=== PATIENT | male | born 1950 | race Caucasian/White ===

== ENCOUNTER → 2020-03-29 13:27 | Outpatient (CLI) | payer MEDICARE, SELFPAY ==
--- NOTE | ~2020-03-29 | XR_ITS ---
EXAMINATION: XR shoulder LT min 2V DATE: 03/29/2020 13:46 INDICATION: Left shoulder pain. TECHNIQUE: 4 views of left shoulder were obtained. COMPARISON: None. FINDINGS: Bone alignment is normal. No fracture. There is mild osteoarthritis of glenohumeral joint a nd acromioclavicular joint characterized by tiny marginal osteophytes. IMPRESSION: 1. Mild polyarticular osteoarthritis. Reviewed, dictated and finalized at location A.
--- NOTE | ~2020-03-29 | XR_ITS ---
EXAMINATION: XR shoulder RT min 2V DATE: 03/29/2020 13:46 INDICATION: Right shoulder pain. TECHNIQUE: 4 views of right shoulder were obtained. COMPARISON: None. FINDINGS: Bone alignment is normal. No fracture. There is mild osteoarthritis of glenohumeral joint a nd acromioclavicular joint characterized by tiny marginal osteophytes. IMPRESSION: 1. Mild polyarticular osteoarthritis. Reviewed, dictated and finalized at location A.
== END ==
PROVIDERS: PCP Family Medicine; Visit Provider Physician Assistant
DX: M19.011 Primary osteoarthritis, right shoulder (principal); M19.012 Primary osteoarthritis, left shoulder
CPT/HCPCS: 73030

== ENCOUNTER 2021-08-14 09:37 | Emergency (ER) | payer MEDICARE, SELFPAY ==
[2021-08-14 09:52] VITALS: BP 159/83; PULSE 94; RESP 16; TEMP 36.8; O2SAT 99
[2021-08-14 09:57] VITALS: BP 159/83; PULSE 89; RESP 18; O2SAT 99
--- NOTE | 2021-08-14 10:28 | ED.MALEGU ---
HPI - Male Genitourinary General Chief complaint: Urogenital-Male <Karlee Perez PA-C - Last Filed: 08/14/21 11:57> Stated complaint: urinary retention <ARLET Allen Last Filed: 08/14/21 11:57> Time Seen by Provider: 08/14/21 10:02 <Karlee Perez PA-C - Last Filed: 08/14/21 11:57> Source: patient <ARLET Allen Last Filed: 08/14/21 11:57> Mode of arrival: ambulatory <ARLET Allen Last Filed: 08/14/21 11:57> Limitations: no limitations <ARLET Allen Last Filed: 08/14/21 11:57> History of Present Illness HPI Narrative: This is a 71 year old male that present to the ER for urinary retention. Reports he has not been able to urinate since last night. Reports yesterday he could only get out a small amount at a time. Reports some dysuria. Reports history of similar occurrences for which he has had to see Urology. He follows with [facility]. Denies fever, flank pain, vomiting, or hematuria. <ARLET Allen Last Filed: 08/14/21 11:57> Related Data Home medications: Home Medications Medication Instructions Recorded Confirmed finasteride 5 mg tablet 5 mg PO DAILY 10/13/19 04/09/21 tamsulosin 0.4 mg capsule 0.4 mg PO DAILY 10/13/19 04/09/21 <ARLET Allen Last Filed: 08/14/21 11:57> Allergies/Adverse reactions: Allergies Allergy/AdvReac Type Severity Reaction Status Date / Time No Known Allergies Allergy Unverified 04/09/21 10:36 <ARLET Allen Last Filed: 08/14/21 11:57> Review of Systems Review of Systems: CONSTITUTIONAL: Denies fever GASTROINTESTINAL: Denies nausea, vomiting GENITOURINARY: Reports dysuria. Denies hematuria. <ARLET Allen Last Filed: 08/14/21 11:57> All systems reviewed & are unremarkable except as noted in HPI and below <Karlee Perez PA-C - Last Filed: 08/14/21 11:57> [facility] Past Medical History Medical History: Medical History (Updated 08/14/21 @ 11:56 by Karlee Perez PA-C) Bilateral shoulder pain Dyslipidemia Essential (primary) hypertension IDDM (insulin dependent diabetes mellitus) <Karlee Perez PA-C - Last Filed: 08/14/21 11:57> Surgical History Surgical History: Surgical History Status post hernia repair <Karlee Perez PA-C - Last Filed: 08/14/21 11:57> Family History Family History: Family History Father Diabetes mellitus Family history of lung cancer Mother Diabetes mellitus Sibling Diabetes mellitus Other Hypertension <Karlee Perez PA-C - Last Filed: 08/14/21 11:57> Social History Social History: Social History Social History: Second hand tobacco smoke exposure: No Alcohol intake: never Substance use: never Substance use type: does not use Gender identity (if verbalized by the patient): Male Sexual Orientation (if Verbalized by the Patient): Straight or Heterosexual <Karlee Perez PA-C - Last Filed: 08/14/21 11:57> Exam Narrative: GENERAL: Well-appearing, well-nourished, and in no acute distress. HEAD: Normocephalic, atraumatic. EYES: EOMI. CHEST: Clear to auscultation. No respiratory distress. No wheezes rales or rhonchi HEART: Regular rate and rhythm. No murmur heard. Normal peripheral pulses. ABDOMEN: Soft, nondistended, normal active bowel sounds. Tender to palpation over the bladder which is distended EXTREMITIES: Normal range of motion. No edema. SKIN: Warm, dry, no rash. NEURO: No focal deficits. Alert and oriented x3. PSYCH: Normal mood and affect <Karlee Perez PA-C - Last Filed: 08/14/21 11:57> Course LABORATORY IMMUNOLOGIST/PA Physician Supervision I did not see this patient nor was the care plan discussed with me. I was available for evaluation and consultation, I agree with the docu
[2021-08-14 11:31] LABS: Add Urine Microscopic? YES; Appearance Urine Clear (Clear); Bilirubin Urine Negative (Negative); Blood Urine Negative (Negative); Color Urine Yellow (Yellow); Glucose Urine UA 2+ mg/dL (Negative); Ketones Urine Negative (Negative); Leukocyte Esterase Ur Negative LEU/UL (Negative); Mucus Urine Rare /lpf; Nitrate Urine Negative (Negative); Protein Urine Negative (Negative); RBC Urine 0-2 /hpf (0-2); Urobilinogen Urine Negative mg/dL (<2.0)
--- NOTE | 2021-08-14 12:03 | PC.NURSE ---
Chris ordered to clamp García catheter
--- NOTE | 2021-08-14 12:05 | PC.NURSE ---
Karlee LANDEROS ordered to leave García catheter clamped for about 20 Mins before discharging
[2021-08-14 12:43] VITALS: BP 121/72; PULSE 80; RESP 18; O2SAT 95
== END 2021-08-14 12:44 | disposition home or self-care (01) ==
PROVIDERS: Physician Assistant; Emergency Provider Emergency Medicine; PCP Family Medicine
DX: R33.9 Retention of urine, unspecified (principal); I10 Essential (primary) hypertension; E11.9 Type 2 diabetes mellitus without complications
CPT/HCPCS: 51702; 81001; 99283

== ENCOUNTER 2021-10-04 10:24 | Outpatient (CLI) | payer MEDICARE, SELFPAY ==
[2021-10-04 11:22] LABS: Basophils Absolute Auto 0.1 K/mm3 (0.0-0.1); Basophils Percent Auto 0.7 % (0.2-1.2); Eosinophils Absolute Auto 0.2 K/mm3 (0-0.3); Eosinophils Percent Auto 3.2 % (0-4.4); Hematocrit 44.9 % (42.0-52.0); Hemoglobin 15.9 g/dL (14.0-18.0); Immature Granulocyte Absolute 0.03 K/mm3 (0.00-0.031); Immature Granulocyte Percent A 0.4 % (0-0.5); Immature Platelet Fraction Pct 2.5 % (0.9-11.2); Lymphocytes Absolute Auto 1.32 K/mm3 (0.9-3.2); Lymphocytes Percent Auto 18.9 % (18.3-44.2); Mean Corpuscular HGB Conc 35.4 g/dl (32-36); Mean Corpuscular Hemoglobin 31.2 pg (26-34); Mean Corpuscular Volume 88.2 fl (80-100); Mean Platelet Volume 10.8 fl (7.4-10.4); Monocytes Percent Auto 13.9 % (2.6-8.5); Neutrophils Absolute Auto 4.4 K/mm3 (1.3-6.7); Neutrophils Percent Auto 62.9 % (45.5-73.1); Platelet Count Result 153 k/mm3 (150-375); Red Blood Count 5.09 M/mm3 (4.6-6.20); Red Cell Distribution Width 12.6 % (11.5-14.5)
[2021-10-04 11:34] LABS: Alanine Aminotransferase 25 U/L (4-50); Albumin Level 4.6 g/dL (3.5-5.1); Alkaline Phosphatase 85 U/L (38-126); Anion Gap 7 mmol/L (8-16); Aspartate Amino Transferase 23 U/L (17-59); Blood Urea Nitrogen 21 mg/dL (9-20); Calcium 9.6 mg/dL (8.4-10.2); Carbon Dioxide 29 mmol/L (22-30); Chloride 99 mmol/L (98-107); Estimated Glomerular Filt Rate > 60; Glucose 277 mg/dL (65-110); Potassium 3.8 mmol/L (3.4-5.0); Sodium 135 mmol/L (137-145)
[2021-10-04 11:36] LABS: Add Urine Microscopic? YES; Appearance Urine Cloudy (Clear); Bilirubin Urine Negative (Negative); Blood Urine Negative (Negative); Budding Yeast Urine Present /hpf; Color Urine Yellow (Yellow); Glucose Urine UA 3+ mg/dL (Negative); Ketones Urine Negative (Negative); Leukocyte Esterase Ur 3+ LEU/UL (NEGATIVE); Nitrate Urine Positive (Negative); Protein Urine 2+ mg/dL (Negative); Specific Grav Ur 1.025 (1.001-1.035); Urobilinogen Urine Negative mg/dL (<2.0); WBC Clumps Urine Present /HPF; WBC Urine >75 /hpf (0-3)
[2021-10-04 11:43] LABS: D Dimer 0.39 ug/mL (<0.48)
== END 2021-10-04 10:25 | disposition home or self-care (01) ==
LOC: ANHLAB 10:26
PROVIDERS: PCP Family Medicine; Visit Provider Physician Assistant
DX: R00.0 Tachycardia, unspecified (principal); U07.1 COVID-19
CPT/HCPCS: 36415; 80053; 81001; 84443; 85025; 85055; 85380; 87077; 87086; 87186

== ENCOUNTER 2021-11-11 00:21 | Day surgery (SDC) | payer MEDICARE, SELFPAY ==
[2021-11-08 15:04] VITALS: BMI 23.8
[2021-11-11] VITALS (15 sets, daily range): BP systolic 127–154; BP diastolic 69–91; PULSE 67–83; RESP 12–16; TEMP 36.6; O2SAT 93–97; BMI 23.2
[2021-11-11 10:43] LABS: Basophils Percent Auto 0.7 % (0.2-1.2); Eosinophils Absolute Auto 0.2 K/mm3 (0-0.3); Eosinophils Percent Auto 3.8 % (0-4.4); Hematocrit 43.9 % (42.0-52.0); Hemoglobin 15.5 g/dL (14.0-18.0); Immature Granulocyte Absolute 0.01 K/mm3 (0.00-0.031); Immature Granulocyte Percent A 0.2 % (0-0.5); Lymphocytes Absolute Auto 1.47 K/mm3 (0.9-3.2); Lymphocytes Percent Auto 26.5 % (18.3-44.2); Mean Corpuscular HGB Conc 35.3 g/dl (32-36); Mean Corpuscular Hemoglobin 31.6 pg (26-34); Mean Corpuscular Volume 89.4 fl (80-100); Mean Platelet Volume 10.2 fl (7.4-10.4); Monocytes Absolute Auto 0.8 K/mm3 (0.1-0.6); Monocytes Percent Auto 14.4 % (2.6-8.5); Neutrophils Percent Auto 54.4 % (45.5-73.1); Platelet Count Result 167 k/mm3 (150-375); Red Blood Count 4.91 M/mm3 (4.6-6.20); Red Cell Distribution Width 13.2 % (11.5-14.5); White Blood Count 5.5 K/mm3 (4.5-10.0)
[2021-11-11 10:53] LABS: Anion Gap 6 mmol/L (8-16); Blood Urea Nitrogen 11 mg/dL (9-20); Calcium 8.9 mg/dL (8.4-10.2); Carbon Dioxide 27 mmol/L (22-30); Chloride 102 mmol/L (98-107); Estimated CRCL calculation 108 ml/min; Estimated Glomerular Filt Rate > 60; Glucose 302 mg/dL (65-110); Potassium 3.9 mmol/L (3.4-5.0); Sodium 135 mmol/L (137-145)
--- NOTE | 2021-11-11 11:21 | WPDMODSED ---
Moderate Sedation Note-Pt Data Patient Data Diagnosis: atypical chest discomfort abnormal ECG rate related left bundle branch block with normal nuclear imaging Present Complaint: no complaints this morning Procedure to be performed/Plan: left heart catheterization Allergies Allergy/AdvReac Type Severity Reaction Status Date / Time No Known Allergies Allergy Unverified 11/11/21 10:26 Home Medications Medication Instructions Recorded Confirmed Type blood sugar diagnostic See Rx Instructions .ROUTE 03/11/21 11/08/21 Rx .COMPLEX #100 strip lisinopril 20 See Rx Instructions .ROUTE 03/11/21 11/08/21 Rx mg-hydrochlorothiazide 25 mg tablet .COMPLEX #90 tablet pen needle, diabetic 32 gauge x #100 ea 08/07/21 10/15/21 Rx 5/32 finasteride 5 mg PO DAILY 30 Days #30 tablet 08/14/21 11/08/21 Rx tamsulosin 0.4 mg PO DAILY 30 Days #30 cap 08/14/21 11/08/21 Rx atorvastatin 20 mg tablet 20 mg PO QHS #90 tablet 10/17/21 11/08/21 Rx insulin lispro protamine-lispro See Rx Instructions .ROUTE 11/07/21 11/08/21 Rx 100 unit/mL (75-25) subcutaneous .COMPLEX #15 ml pen aspirin 81 mg PO DAILY 11/08/21 11/08/21 History Current Medications: Active Medications Sodium Chloride (Normal Saline Iv) 500 mls @ 100 mls/hr IV CONT .Q5H [facility]ULU Sedation/Anesthesia: No previous sedation/anesthesia problems (including family history). [facility] Past Medical History Medical History (Updated 10/15/21 @ 09:24 by Alicia Hutton PA-C) Bilateral shoulder pain Dyslipidemia Essential (primary) hypertension IDDM (insulin dependent diabetes mellitus) Surgical History Surgical History Status post hernia repair Family History Family History Father Diabetes mellitus Family history of lung cancer Mother Diabetes mellitus Sibling Diabetes mellitus Other Hypertension Social History Social History Social History: Smoking status: Never smoker Second hand tobacco smoke exposure: Yes (as a child- father smoked for 40 years but has been along time ago) Alcohol intake: never Substance use: never Substance use type: does not use Living arrangements: with family Gender identity (if verbalized by the patient): Male Sexual Orientation (if Verbalized by the Patient): Straight or Heterosexual Spiritual care concerns: No Mod Sed Physical Exam Physical Exam Pre Procedural Exam: Normal: Appearance, Neck, Throat, Airway, Lungs, Heart Size, Heart Rate, Heart Rhythm, Neuro Exam and Extremities Hours since solid foods: 12 Hours since liquid intake: 12 Mallampati Classification: class II Internal Medicine - PN: Obj Da Vital Signs Vital Signs: Vital Signs - 24 hr 11/11/21 10:28 Temperature 36.6 C Pulse Rate 83 Respiratory Rate 15 Blood Pressure 149/82 H Pulse Oximetry 95 Meds/Results Medications: Active Medications Generic Name Dose Route Start Last Admin Trade Name Freq PRN Reason Stop Dose Admin Sodium Chloride 500 mls @ 100 mls/hr 11/11/21 10:00 Normal Saline Iv IV CONT .Q5H LULU Labs CBC & Chem 7: 11/11/21 10:26 11/11/21 10:26 Labs: Laboratory Results - last 24 hr 11/11/21 11/11/21 10:26 10:26 WBC 5.5 RBC 4.91 Hgb 15.5 Hct 43.9 MCV 89.4 MCH 31.6 MCHC 35.3 RDW 13.2 Plt Count 167 MPV 10.2 Immature Gran % (Auto) 0.2 Neut % (Auto) 54.4 Lymph % (Auto) 26.5 Collin % (Auto) 14.4 H Eos % (Auto) 3.8 Baso % (Auto) 0.7 Lymph # (Auto) 1.47 Collin # (Auto) 0.8 H Eos # (Auto) 0.2 Baso # (Auto) 0.0 Abs Immat Gran (auto) 0.01 Absolute Neuts (auto) 3.0 Absolute Nucleated RBC 0.0 Nucleated RBC % 0.0 Sodium 135 L Potassium 3.9 Chloride 102 Carbon Dioxide 27 Anion Gap 6 L BUN 11 D Creatinine 0.60 L Estim Creat Clear
--- NOTE | 2021-11-11 11:52 | WPDCARDPROC ---
Cardiac Cath Procedure Note Date of procedure:: 11/11/21 Performing physician:: Jordi Luke MD Indication:: rate related left bundle branch block Brief clinical history:: this is a 62-year-old man who has been found to have an abnormal resting electrocardiogram with inferolateral T-wave abnormalities. A exercise stress test demonstrated evidence of a rate related left bundle branch block. Nuclear perfusion imaging was normal. Procedure Procedure performed:: Left ventriculogram coronary angiogram Sedation/Medication given:: fentanyl 50 mg Versed 2 mg Access site:: right femoral artery Estimated blood loss:: 25 cc Procedure note:: patient was brought to the cardiac catheterization lab in the postabsorptive state where triangle was prepared and draped normal fashion. Anesthesia was provided 1% lidocaine infiltrated locally. Using the modified Seldinger technique 5 [place] sheath was placed into the femoral artery. After this left heart catheterization was carried out. A 5 angled pigtail catheter was used to measure left-sided hemodynamics inject LV g in the CRYSTAL projection. After this standard 5 [place] FL4 catheter to engage inject the left coronary artery and 5 [place] JR4 catheter to engage and inject the right coronary artery. This any angiograms were then reviewed and the case was terminated. An angiogram was done of the femoral artery through the sheath after which I determined to pull sheath with direct manual pressure. Patient left the cath lab technologist in stable condition with no apparent complications and no evidence of a groin hematoma. Findings:: Hemodynamics: Central aortic pressure is 114 over 56 left ventricle 114 was 0 end-diastolic 8 there is no gradient on pullback across the aortic valve. Left ventricle: The LV is normal in size all segments contract appropriately the global ejection fraction is 65%. The left main coronary artery is nicely patent left anterior descending is a moderate caliber artery extending down to and just around the apex. The midportion of the LAD has mild atherosclerosis but no more than 30-40% stenosis. There was SUBHA 3 flow in the LAD. The circumflex is a moderate caliber artery giving rise to marginal branches and a posterior branch. The circumflex system is smooth and angiographically unremarkable in appearance right coronary artery is dominant to the posterior circulation and is smooth and angiographically normal in appearance Conclusion:: 1. right coronary dominant circulation with no significant coronary artery disease. Mild plaquing in the mid LAD as described above. 2. Normal left ventricular systolic function 3. rate related left bundle-branch block noted on stress testing is not a function of myocardial ischemia based on these findings Jordi Luke MD FACC
[2021-11-11 12:43] LABS: Glucose Point of Care 260 mg/dl (65-105)
== END 2021-11-11 17:10 | disposition home or self-care (01) ==
PROVIDERS: PCP Family Medicine; Visit Provider Specialist
PROC: 4A023N7 Measurement of Cardiac Sampling and Pressure, Left Heart, Percutaneous Approach (ICD-10-PCS; CPT 93452; principal; 2021-11-11 11:30)
DX: R94.39 Abnormal result of other cardiovascular function study (principal); I44.7 Left bundle-branch block, unspecified; E11.9 Type 2 diabetes mellitus without complications; I10 Essential (primary) hypertension; E78.5 Hyperlipidemia, unspecified; Z79.4 Long term (current) use of insulin
CPT/HCPCS: 36415; 80048; 82948; 85025; 93458; C1887; C1894; J1644; J2250; J3010; J7040

== ENCOUNTER 2022-06-30 08:54 | Outpatient (CLI) | payer MEDICARE, SELFPAY ==
--- NOTE | ~2022-06-30 | XR_ITS ---
EXAMINATION: XR hip RT min 3V w AP pelvis DATE: 06/30/2022 09:21 INDICATION: Right hip pain. TECHNIQUE: An anteroposterior view of the pelvis and 3 views of right hip were obtained. COMPARISON: None. FINDINGS: Bone alignment is normal. No fracture. There is mild osteoarthritis of the hips. Surgical c lips overlie left inguinal region, likely from hernia repair. There is mild lumbar spondylosis. IMPRESSION: 1. Mild osteoarthritis of the hips. Reviewed, dictated and finalized at location A.
== END 2022-06-30 08:55 | disposition home or self-care (01) ==
LOC: ANHIMG 08:57
PROVIDERS: PCP Family Medicine; Visit Provider Physician Assistant
DX: M16.0 Bilateral primary osteoarthritis of hip (principal)
CPT/HCPCS: 73502

== ENCOUNTER 2022-12-16 14:45 | Outpatient (CLI) | payer MEDICARE, SELFPAY ==
--- NOTE | ~2022-12-16 | CT_ITS ---
EXAMINATION: CT abdomen pelvis wo con DATE: 12/16/2022 15:08 INDICATION: Right upper quadrant pain TECHNIQUE: Computed tomography (CT) of the abdomen and pelvis was performed without intravenous contr ast. The dose-length product was 359.66 mGy-cm. Automated exposure control and iterative reconstructi on technique were employed. COMPARISON: None. FINDINGS: There is dependent atelectasis. Heart size normal. No significant pleural or pericardial ef fusion. No significant vascular abnormality. Severely enlarged prostate gland with bladder distention . Bladder wall is thickened. There is bilateral hydronephrosis. No obstructing stone or mass seen. Gallstones. The liver, spleen, pancreas, adrenal glands are unremarkable. Nonobstructive bowel gas pa ttern. Status post prior left inguinal hernia repair. Trace free fluid in the pelvis. No free air. No lymphadenopathy. No acute osseous abnormality. IMPRESSION: 1. Moderate bladder distention with bladder wall thickening, likely due to outlet obstruction seconda ry to severely enlarged prostate gland. 2: Bilateral hydronephrosis. 3: Cholelithiasis. Reviewed, dictated and finalized at location L. IMPRESSION: 1. Moderate bladder distention with bladder wall thickening, likely due to outl et obstruction secondary to severely enlarged prostate gland. 2: Bilateral hydronephrosis. 3: Cholelithiasis.
--- NOTE | ~2022-12-16 | XR_ITS ---
XR abdomen/kub 1V 12/16/2022 15:06 INDICATION: Right upper quadrant abdominal pain TECHNIQUE: KUB COMPARISON: 01/15/2004 FINDINGS: Bowel gas pattern is normal. There is no evidence of free air, mass, organomegaly, ascites or obstruction. No abnormal calculi are seen. The bones appear intact. There is lumbar spondylosis with dextroscoliosis. IMPRESSION: 1: No acute abdominal abnormality identified. Reviewed, dictated and finalized at location L.
== END 2022-12-16 14:46 | disposition home or self-care (01) ==
PROVIDERS: PCP Family Medicine; Visit Provider Nurse Practitioner Adult Health
DX: R10.11 Right upper quadrant pain (principal); K80.20 Calculus of gallbladder without cholecystitis without obstruction; N13.30 Unspecified hydronephrosis
CPT/HCPCS: 74018; 74176